=== PATIENT | male | born 1985 | race Caucasian/White ===

== ENCOUNTER 2016-06-30 18:26 | Emergency (ER) | payer SELFPAY ==
[~2016-06-30 18:26] MED LIST: MELO15TA2 PO; Z.0.NO CURRENT MEDS
[2016-06-30 18:27] VITALS: BP 110/73; PULSE 72; RESP 16; TEMP 98.6; O2SAT 98
--- NOTE | 2016-06-30 19:44 | PD ---
Physical Exam Time Seen by Provider: 19:43 Narrative 30yo M c/o intermittent chest pain for the last few years with worsening over the past 3 days. Reports SOB and SMALL. Denies fever, vomiting. VSS. Patient seen in triage. Awaiting bed placement. Data Data Last Documented VS Vital Signs Date Time Temp Pulse Resp B/P Pulse Ox O2 Delivery O2 Flow Rate FiO2 06/30/16 18:27 98.6 72 16 110/73 98 Room Air MDM Supervised Visit with CINDY: No Scripts No Active Prescriptions or Reported Meds Amaris Baldwin Jun 30, 2016 19:44
[2016-06-30] MEDS ORDERED: SODIUM CHLORIDE 0.9% FLUSH 10 ML FLUSH IVF PRN (20:45)
[2016-06-30] MEDS ORDERED: SODIUM CHLORID 0.9% 500 ML INJ 500 ML IV ONE (20:45)
--- NOTE | 2016-06-30 20:46 | PD ---
HPI Chief Complaint: Pain: Acute or Chronic Time Seen by Provider: 20:39 Travel History International Travel<30 days: No Contact w/Intl Traveler<30days: No Traveled to known affect area: No History of Present Illness HPI Patient is a 30-year-old male presenting to the emergency department for evaluation of chest pain. He states it's been on and off for several years however it's been fairly consistent for the last 2 weeks and over the last 3 days has gotten progressively worse occurring daily. He states it's over his left chest wall, he has exacerbation of the pain when he moves his left arm. He has not taken anything for the pain. Patient denies any nausea, vomiting, fever, chills. He reports a cough which is chronic in nature likely secondary to the 2 packs of cigarettes he smokes daily as well as daily marijuana use. Patient reports a headache that starts in his neck and radiates to the top of his head. He states the pain is a 5 out of 10. Patient states he took one Lortab that his boss gave him. He has not taken any ibuprofen or acetaminophen. [facility] Past Medical History Medical History: Denies Significant Hx Immunizations Current: Yes Past Surgical History Surgical History: No Previous Surgery Social History Alcohol Use: Yes (OCCAS. BEER) Tobacco Use: Yes (2 packs a day) Substance Use: Yes (marijuana) Allergies-Medications (Allergen,Severity, Reaction): Coded Allergies: No Known Allergies (Unverified , 06/30/16) Reported Meds & Prescriptions Reported Meds & Active Scripts Active No Active Prescriptions or Reported Medications Review of Systems Except as stated in HPI: all other systems reviewed are Neg General / Constitutional: No: Fever, Chills HENT: Positive: Headaches Cardiovascular: Positive: Chest Pain or Discomfort, No: Tachycardia, Dyspnea on exertion Respiratory: Positive: Cough, No: Shortness of Breath, Wheezing Gastrointestinal: No: Nausea, Vomiting, Diarrhea, Abdominal Pain Genitourinary: No: Dysuria Musculoskeletal: Positive: Myalgias (back pain) Neurologic: No: Weakness, Dizziness, Syncope Physical Exam Narrative GENERAL: Developed, well-nourished, alert male. Resting comfortably in no acute distress SKIN: Focused skin assessment warm/dry. HEAD: Atraumatic. Normocephalic. EYES: Pupils equal and round. No scleral icterus. No injection or drainage. ENT: No nasal bleeding or discharge. Mucous membranes pink and moist. NECK: Trachea midline. No JVD. CARDIOVASCULAR: Regular rate and rhythm. No murmur appreciated. RESPIRATORY: No accessory muscle use. Clear to auscultation. Breath sounds equal bilaterally. GASTROINTESTINAL: Abdomen soft, non-tender, nondistended. Hepatic and splenic margins not palpable. MUSCULOSKELETAL: No obvious deformities. No clubbing. No cyanosis. No edema. No CVAT bilaterally NEUROLOGICAL: Awake and alert. No obvious cranial nerve deficits. Motor grossly within normal limits. Normal speech. PSYCHIATRIC: Appropriate mood and affect; insight and judgment normal. Data Data Last Documented VS Vital Signs Date Time Temp Pulse Resp B/P Pulse Ox O2 Delivery O2 Flow Rate FiO2 06/30/16 20:47 62 18 114/53 96 Room Air 06/30/16 18:27 98.6 Orders Electrocardiogram (06/30/16 20:37) Ckmb (Isoenzyme) Profile (06/30/16 20:37) Complete Blood Count With Diff (06/30/16 20:37) Comprehensive Metabolic Panel (06/30/16 20:37) Magnesium (Mg) (06/30/16 20:37) Prothrombin Time / Inr (Pt) (06/30/16 20:37) Act Partial Throm Time (Ptt) (06/30/16 20:37) Troponin I (06/30/16 20:37) Chest, Single Ap (06/30/16 20:37) Ecg Monitoring (06/30/16 20:37) Iv Access Insert/Monitor (06/30/16 20:37) Oximetry (06/30/16 20:37) Oxygen Administration (06/30/16 20:37) Sodium Chloride 0.9% Flush (Ns Flush) (06/30/16 20:45) Sodium Chlorid 0.9% 500 Ml Inj (Ns 500 M (06/30/16 20:45) Urinalysis - C+S If Indicated (06/30/16 20:37) CKMB (06/30/16 20:17) CKMB% (06/30/16 20:17) Labs Laboratory Tests Test 06/30/16 20:17 White Blood Count 7.4 TH/MM3 Red Blood Count 4.71 MIL/MM3 Hemoglobin 14.8 GM/DL Hematocrit 42.3 % Mean Corpuscular Volume 89.9 FL Mean Corpuscular Hemoglobin 31.4 PG Mean Corpuscular Hemoglobin 34.9 % Concent Red Cell Distribution Width 13.3 % Platelet Count 208 TH/MM3 Mean Platelet Volume 9.4 FL Neutrophils (%) (Auto) 45.1 % Lymphocytes (%) (Auto) 43.2 % Monocytes (%) (Auto) 7.8 % Eosinophils (%) (Auto) 3.3 % Basophils (%) (Auto) 0.6 % Neutrophils # (Auto) 3.4 TH/MM3 Lymphocytes # (Auto) 3.2 TH/MM3 Monocytes # (Auto) 0.6 TH/MM3 Eosinophils # (Auto) 0.2 TH/MM3 Basophils # (Auto) 0.0 TH/MM3 CBC Comment DIFF FINAL Differential Comment Prothrombin Time 10.7 SEC Prothromb Time International 1.0 RATIO Ratio Activated Partial 28.8 SEC Thromboplast Time Urine Color YELLOW Urine Turbidity CLEAR Urine pH 6.0 Urine Specific [place] 1.032 Urine Protein TRACE mg/dL Urine Glucose (UA) NEG mg/dL Urine Ketones NEG mg/dL Urine Occult Blood NEG Urine Nitrite NEG Urine Bilirubin NEG Urine Urobilinogen 2.0 MG/DL Urine Leukocyte Esterase NEG Urine RBC LESS THAN 1 /hpf Urine WBC 1 /hpf Urine Squamous Epithelial <1 /hpf Cells Urine Mucus FEW /lpf Microscopic Urinalysis Comment CULT NOT INDICATED Sodium Level 141 MEQ/L Potassium Level 3.8 MEQ/L Chloride Level 106 MEQ/L Carbon Dioxide Level 30.1 MEQ/L Anion Gap 5 MEQ/L Blood Urea Nitrogen 23 MG/DL Creatinine 1.20 MG/DL Estimat Glomerular Filtration 71 ML/MIN Rate Random Glucose 98 MG/DL Calcium Level 8.7 MG/DL Magnesium Level 2.2 MG/DL Total Bilirubin 0.2 MG/DL Aspartate Amino Transf 16 U/L (AST/SGOT) Alanine Aminotransferase 24 U/L (ALT/SGPT) Alkaline Phosphatase 49 U/L Total Creatine Kinase 120 U/L Creatine Kinase MB 0.6 NG/ML Troponin I LESS THAN 0.02 NG/ML Total Protein 6.8 GM/DL Albumin 3.8 GM/DL MDM Medical Decision Making Medical Screen Exam Complete: Yes Emergency Medical Condition: Yes Interpretation(s) Vital Signs Date Time Temp Pulse Resp B/P Pulse Ox O2 Delivery O2 Flow Rate FiO2 06/30/16 18:27 98.6 72 16 110/73 98 Room Air Differential Diagnosis Chest wall pain versus AMI versus pneumonia versus chronic bronchitis versus other Narrative Course Patient is a 30-year-old male presenting to the emergency Department with 2 weeks of chest pain, cough, headache. Labs and imaging ordered and pending. Patient's vital signs are stable, he is resting comfortably, IV access established. EKG and chest x-ray ordered. Care of pt transferred to Dr. Goldman at the end of my shift. He will determine patients disposition. Scripts No Active Prescriptions or Reported Meds Kirstie Moreno Jun 30, 2016 20:46
[2016-06-30 20:47] VITALS: BP 114/53; PULSE 62; RESP 18; O2SAT 96
--- NOTE | 2016-06-30 20:47 | PD ---
Data Data Last Documented VS Vital Signs Date Time Temp Pulse Resp B/P Pulse Ox O2 Delivery O2 Flow Rate FiO2 06/30/16 20:47 62 18 114/53 96 Room Air 06/30/16 18:27 98.6 Orders Electrocardiogram (06/30/16 20:37) Ckmb (Isoenzyme) Profile (06/30/16 20:37) Complete Blood Count With Diff (06/30/16 20:37) Comprehensive Metabolic Panel (06/30/16 20:37) Magnesium (Mg) (06/30/16 20:37) Prothrombin Time / Inr (Pt) (06/30/16 20:37) Act Partial Throm Time (Ptt) (06/30/16 20:37) Troponin I (06/30/16 20:37) Chest, Single Ap (06/30/16 20:37) Ecg Monitoring (06/30/16 20:37) Iv Access Insert/Monitor (06/30/16 20:37) Oximetry (06/30/16 20:37) Oxygen Administration (06/30/16 20:37) Sodium Chloride 0.9% Flush (Ns Flush) (06/30/16 20:45) Sodium Chlorid 0.9% 500 Ml Inj (Ns 500 M (06/30/16 20:45) Urinalysis - C+S If Indicated (06/30/16 20:37) CKMB (06/30/16 20:17) CKMB% (06/30/16 20:17) Labs Laboratory Tests Test 06/30/16 20:17 White Blood Count 7.4 TH/MM3 Red Blood Count 4.71 MIL/MM3 Hemoglobin 14.8 GM/DL Hematocrit 42.3 % Mean Corpuscular Volume 89.9 FL Mean Corpuscular Hemoglobin 31.4 PG Mean Corpuscular Hemoglobin 34.9 % Concent Red Cell Distribution Width 13.3 % Platelet Count 208 TH/MM3 Mean Platelet Volume 9.4 FL Neutrophils (%) (Auto) 45.1 % Lymphocytes (%) (Auto) 43.2 % Monocytes (%) (Auto) 7.8 % Eosinophils (%) (Auto) 3.3 % Basophils (%) (Auto) 0.6 % Neutrophils # (Auto) 3.4 TH/MM3 Lymphocytes # (Auto) 3.2 TH/MM3 Monocytes # (Auto) 0.6 TH/MM3 Eosinophils # (Auto) 0.2 TH/MM3 Basophils # (Auto) 0.0 TH/MM3 CBC Comment DIFF FINAL Differential Comment Prothrombin Time 10.7 SEC Prothromb Time International 1.0 RATIO Ratio Activated Partial 28.8 SEC Thromboplast Time Urine Color YELLOW Urine Turbidity CLEAR Urine pH 6.0 Urine Specific [place] 1.032 Urine Protein TRACE mg/dL Urine Glucose (UA) NEG mg/dL Urine Ketones NEG mg/dL Urine Occult Blood NEG Urine Nitrite NEG Urine Bilirubin NEG Urine Urobilinogen 2.0 MG/DL Urine Leukocyte Esterase NEG Urine RBC LESS THAN 1 /hpf Urine WBC 1 /hpf Urine Squamous Epithelial <1 /hpf Cells Urine Mucus FEW /lpf Microscopic Urinalysis Comment CULT NOT INDICATED Sodium Level 141 MEQ/L Potassium Level 3.8 MEQ/L Chloride Level 106 MEQ/L Carbon Dioxide Level 30.1 MEQ/L Anion Gap 5 MEQ/L Blood Urea Nitrogen 23 MG/DL Creatinine 1.20 MG/DL Estimat Glomerular Filtration 71 ML/MIN Rate Random Glucose 98 MG/DL Calcium Level 8.7 MG/DL Magnesium Level 2.2 MG/DL Total Bilirubin 0.2 MG/DL Aspartate Amino Transf 16 U/L (AST/SGOT) Alanine Aminotransferase 24 U/L (ALT/SGPT) Alkaline Phosphatase 49 U/L Total Creatine Kinase 120 U/L Creatine Kinase MB 0.6 NG/ML Troponin I LESS THAN 0.02 NG/ML Total Protein 6.8 GM/DL Albumin 3.8 GM/DL [facility] Supervised Visit with CINDY: Yes Narrative Course She care assumed from Kirstie TOMLINSON at 2100. Briefly this a 30-year-old male with highly atypical chest pain. EKG and troponin are negative. He has a 2 pack per day smoker and discussed this is putting him it is curious risk of heart disease and cancer. He is highly advised to stop. He is and I any cocaine use at this time. On my reevaluation the patient is sleeping soundly, arouses easily. His chest pain is highly positional. He is low risk for ACS and is stable to pursue outpatient workup. Discussed with her need follow-up the primary care physician and return to ED criteria. He is discharged in stable condition. Diagnosis Primary Impression: Chest pain with low risk for cardiac etiology Additional Instruction: Highly recommend quitting smoking as this can lead to risk of heart disease cancer in the future. Call the [place] help quit line. Recommend follow-up with a primary care physician or the [facility]. Scripts No Active Prescriptions or Reported Meds Disposition: 01 DISCHARGE HOME Condition: Brandyn Gonzalez MD Jun 30, 2016 20:47
--- NOTE | 2016-06-30 21:10 | RADRPT ---
EXAM DATE/TIME: 06/30/2016 20:43 [place] COMPARISON: No previous studies available for comparison. INDICATIONS : Chest pain MEDICAL HISTORY : None. SURGICAL HISTORY : None. ENCOUNTER: Initial ACUITY: 3 days PAIN SCORE: 2/10 LOCATION: Bilateral chest FINDINGS: A single view of the chest demonstrates the lungs to be symmetrically aerated without evidence of mas s, infiltrate or effusion. The cardiomediastinal contours are unremarkable. Osseous structures are intact. CONCLUSION: No acute disease. Reese Esteban MD on June 30, 2016 at 21:08 Board Certified Radiologist. This report was verified electronically.
[2016-06-30 21:13] LABS: AUTOMATED NEUTROPHIL # 3.4 TH/MM3 (1.8-7.7); BASOPHIL % 0.6 % (0.0-2.0); EOSINOPHIL # 0.2 TH/MM3 (0-0.4); EOSINOPHIL % 3.3 % (0.0-4.0); HEMATOCRIT 42.3 % (39.0-51.0); HEMO FLAGS DIFF FINAL; LYMPH % 43.2 % (9.0-44.0); LYMPHOCYTE # 3.2 TH/MM3 (1.0-4.8); MEAN CELL VOLUME 89.9 FL (80.0-100.0); MEAN CORPUSCULAR HEMOGLOBIN 31.4 PG (27.0-34.0); MEAN CORPUSCULAR HGB CONC 34.9 % (32.0-36.0); MONO % 7.8 % (0.0-8.0); NEUT % 45.1 % (16.0-70.0); PLATELET COUNT 208 TH/MM3 (150-450); RED BLOOD COUNT 4.71 MIL/MM3 (4.50-5.90); RED CELL DISTRIBUTION WIDTH 13.3 % (11.6-17.2); WHITE BLOOD COUNT 7.4 TH/MM3 (4.0-11.0)
[2016-06-30 21:19] LABS: BLOOD, URINE NEG (NEG); GLUCOSE,URINE NEG (NEG); KETONE, URINE NEG (NEG); MUCUS URINE FEW /lpf (OCC); NITRITE,URINE NEG (NEG); SQUAMOUS EPITHELIAL CELL URINE <1 /hpf (0-5); URINE COLOR YELLOW (YELLW/STRAW)
[2016-06-30 21:20] LABS: COMMENT (UR) CULT NOT INDICATED; CULTURE IF INDICATED CULT NOT INDICATED
[2016-06-30 21:21] LABS: APTT (PATIENT) 28.8 SEC (24.3-30.1); PROTHROMBIN TIME - PATIENT 10.7 SEC (9.8-11.6)
[2016-06-30 21:58] LABS: ALKALINE PHOSPHATASE 49 U/L (45-117); ALT (GPT) 24 U/L (12-78); ANION GAP 5 MEQ/L (5-15); AST (GOT) 16 U/L (15-37); BICARBONATE 30.1 MEQ/L (21.0-32.0); BLOOD UREA NITROGEN 23 MG/DL (7-18); CHLORIDE 106 MEQ/L (98-107); CREATINE KINASE 120 U/L (39-308); GLOMERULAR FILTRATION RATE 71 ML/MIN (>89); MAGNESIUM 2.2 MG/DL (1.5-2.5); POTASSIUM 3.8 MEQ/L (3.5-5.1); SODIUM (NA) 141 MEQ/L (136-145); TOTAL BILIRUBIN ADULT 0.2 MG/DL (0.2-1.0)
[2016-06-30 22:10] LABS: CKMB 0.6 NG/ML (0.5-3.6)
--- NOTE | 2016-06-30 22:47 | EKG ---
Date Performed: 06/30/2016 Time Performed: 21:07:29 PTAGE: 30 years EKG: SINUS BRADYCARDIA BORDERLINE ECG PREVIOUS TRACING : 03/21/2012 16.00 No significant change from previous tracing noted. DOCTOR: Isaias Maradiaga Interpretating Date/Time 06/30/2016 22:45:30
== END 2016-06-30 23:40 | disposition home or self-care (01) ==
LOC: NEPD 18:26
DX: R07.9 Chest pain, unspecified (principal); R05 Cough; F17.200 Nicotine dependence, unspecified, uncomplicated
CPT/HCPCS: 71010; 80053; 81001; 82550; 82552; 83735; 84484; 85025; 85610; 85730; 93005; 96360; 99285; J7040